=== PATIENT | female | born 1985 | race Caucasian/White ===

== ENCOUNTER 2022-03-28 15:51 | Emergency (ER) | payer SELFPAY ==
--- NOTE | 2022-03-28 16:24 | ED Abdominal Pain ---
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 PT WAS SENT [facility] BY [facility] WITH ABNORMAL EKG. Source of Information: Patient Exam Limitations: No Limitations History of Present Illness Date Seen by Provider: Mar 28, 2022 Time Seen by Provider: 16:09 Initial Comments This is a 36-year-old female who was referred to the emergency department per [facility] for concerns of abnormal EKG findings. States that she presented to [facility] today for concerns of right upper quadrant abdominal pain that radiates into her back. Symptoms been present for the past 2 days, always worse after meals. Her last meal was around noon and she had meatloaf, cheddar peppers, and a breakfast burrito. No fever, chills, cough, shortness of breath, chest pain, vomiting, diarrhea, constipation, dysuria. Allergies and Home Medications Allergies Coded Allergies: No Known Drug Allergies (Unverified , 03/28/22) Patient Home Medication List Home Medication List Reviewed: Yes Ciprofloxacin HCl (Ciprofloxacin HCl) 500 Mg Tablet, 500 MG PO BID Prescribed by: SHAI MOLINA on 03/28/221811 Hydrochlorothiazide (Hydrochlorothiazide) 25 Mg Tablet, 25 MG PO DAILY Prescribed by: SHAI MOLINA on 03/28/221821 Metronidazole (Metronidazole) 500 Mg Tablet, 500 MG PO TID Prescribed by: SHAI MOLINA on 03/28/221811 Ondansetron (Ondansetron Odt) 4 Mg Tab.rapdis, 4 MG PO Q6H PRN for NAUSEA/VOMITING Prescribed by: SHAI MOLINA on 03/28/221811 Pantoprazole Sodium (Pantoprazole Sodium) 40 Mg Tablet.dr, 40 MG PO DAILY Prescribed by: SHAI MOLINA on 03/28/221811 Review of Systems Review of Systems Constitutional: see HPI Past Akwjghl-Adpwlu-Gxjeac Hx Patient Social History Tobacco Use?: Yes Tobacco type used: Cigarettes Smoking Status: Current Everyday Smoker Use of E-Cig and/or Vaping dev: Yes Use of E-Cig and/or Vaping Ovidio: Current Someday User Substance use?: No Alcohol Use?: Yes Alcohol Frequency: Rarely Pt feels they are or have been: No Physical Exam Vital Signs Vital Signs - First Documented 03/28/22 16:05 Pulse 94 Resp 14 B/P (MAP) 184/132 (149) Pulse Ox 97 O2 Delivery Room Air Capillary Refill : Less Than 3 Seconds Height/Weight/BMI Height: '" Weight: lbs. oz. kg; BMI Method: General Appearance: WD/WN, no apparent distress HEENT: PERRL/EOMI, normal ENT inspection, pharynx normal Neck: full range of motion, normal inspection Respiratory: lungs clear, normal breath sounds, no respiratory distress, no accessory muscle use Cardiovascular: regular rate, rhythm, no murmur Gastrointestinal: normal bowel sounds, soft; No distended, No guarding, No rebound; tenderness (epigastric) Extremities: normal range of motion, normal inspection Back: normal inspection Neurologic/Psychiatric: no motor/sensory deficits, alert, normal mood/affect, oriented x 3 Skin: normal color, warm/dry Progress/Results/Core Measures Results/Orders Lab Results Laboratory Tests Test 03/28/22 16:24 Range/Units White Blood Count 11.8 H 4.3-11.0 10^3/uL Red Blood Count 4.75 3.80-5.11 10^6/uL Hemoglobin 14.1 11.5-16.0 g/dL Hematocrit 42 35-52 % Mean Corpuscular Volume 89 80-99 fL Mean Corpuscular Hemoglobin 30 25-34 pg Mean Corpuscular Hemoglobin Concent 33 32-36 g/dL Red Cell Distribution Width 12.3 10.0-14.5 % Platelet Count 346 130-400 10^3/uL Mean Platelet Volume 8.4 L 9.0-12.2 fL Immature Granulocyte % (Auto) 0 % Neutrophils (%) (Auto) 57 42-75 % Lymphocytes (%) (Auto) 28 12-44 % Monocytes (%) (Auto) 6 0-12 % Eosinophils (%) (Auto) 7 0-10 % Basophils (%) (Auto) 1 0-10 % Neutrophils # (Auto) 6.8 1.8-7.8 10^3/uL Lymphocytes # (Auto) 3.3 1.0-4.0 10^3/uL Monocytes # (Auto) 0.8 0.0-1.0 10^3/uL Eosinophils # (Auto) 0.8 H 0.0-0.3 10^3/uL Basophils # (Auto) 0.1 0.0-0.1 10^3/uL Immature Granulocyte # (Auto) 0.1 0.0-0.1 10^3/uL Sodium Level 138 135-145 MMOL/L Potassium Level 4.1 3.6-5.0 MMOL/L Chloride Level 106 98-107 MMOL/L Carbon Dioxide Level 24 21-32 MMOL/L Anion Gap 8 5-14 MMOL/L Blood Urea Nitrogen 13 7-18 MG/DL Creatinine 0.81 0.60-1.30 MG/DL Estimat Glomerular Filtration Rate 96 BUN/Creatinine Ratio 16 Glucose Level 96 70-105 MG/DL Calcium Level 9.1 8.5-10.1 MG/DL Corrected Calcium 9.0 8.5-10.1 MG/DL Total Bilirubin 0.3 0.1-1.0 MG/DL Aspartate Amino Transf (AST/SGOT) 27 5-34 U/L Alanine Aminotransferase (ALT/SGPT) 40 0-55 U/L Alkaline Phosphatase 68 40-136 U/L Troponin I < 0.028 <0.028 NG/ML Total Protein 7.1 6.4-8.2 GM/DL Albumin 4.1 3.2-4.5 GM/DL My Orders Orders - SHAI MOLINA APRN Ekg Tracing (03/28/22 16:11) Cbc With Automated Diff (03/28/22 16:33) Comprehensive Metabolic Panel (03/28/22 16:33) Urine Bedside (03/28/22 16:33) Fentanyl Inj (Sublimaze Injection) (03/28/22 16:45) Ondansetron Injection (Zofran Injectio (03/28/22 16:45) Troponin I Mau (03/28/22 16:33) Ct Abdomen/Pelvis W (03/28/22 16:33) Iohexol Injection (Omnipaque 350 Mg/Ml 1 (03/28/22 16:45) Received Contrast (Hold Metformin- Contr (03/28/22 16:45) Ns (Ivpb) (Sodium Chloride 0.9% Ivpb Bag (03/28/22 16:45) Hydrochlorothiazide Cap/Tablet (Hctz Cap (03/28/22 18:30) Medications Given in ED Current Medications Medications Dose Ordered Sig/Kirsten Route Start Time Stop Time Status Last Admin Dose Admin Hydrochlorothiazide 25 mg ONCE ONCE PO 03/28/22 18:30 03/28/22 18:31 DC 03/28/22 18:31 25 MG Iohexol 100 ml ONCE ONCE IV 03/28/22 16:45 03/28/22 16:46 DC 03/28/22 17:29 80 ML Ondansetron HCl 4 mg ONCE ONCE IVP 03/28/22 16:45 03/28/22 16:46 DC 03/28/22 17:17 4 MG Sodium Chloride 100 ml ONCE ONCE IV 03/28/22 16:45 03/28/22 16:46 DC 03/28/22 17:29 80 ML Vital Signs/I&O 03/28/22 03/28/22 16:05 18:33 Pulse 94 84 Resp 14 16 B/P (MAP) 184/132 (149) 184/131 Pulse Ox 97 98 O2 Delivery Room Air Blood Pressure Mean: 149 Initial ECG Impression Date: Mar 28, 2022 Initial ECG Impression Time: 16:17 Initial ECG Rate: 85 Initial ECG Rhythm: Normal Sinus Initial ECG Intervals: Normal Initial ECG Impression: Normal Initial ECG Comparisson: No Previous ECG Available Diagnostic Imaging Diagonstic Imaging: CT Plain Films/CT/US/NM/MRI: abdomen Comments [facility] [place] NAME: MCFADDENDOV R [facility] REC#: [id number] PT STATUS: DEP ER : 1985 PHYSICIAN: SHAI MOLINA APRN ADMIT DATE: 03/28/22/ER Signed Date of Exam:03/28/22 CT ABDOMEN/PELVIS W PROCEDURE: CT abdomen and pelvis with contrast. TECHNIQUE: Multiple contiguous axial images were obtained through the abdomen and pelvis after administration of intravenous contrast. Auto Exposure Controls were utilized during the CT exam to meet ALARA standards for radiation dose reduction. All CT scans use one or more of the following dose optimizing techniques: automated exposure control, MA and/or KvP adjustment based on patient size and exam type or iterative reconstruction. INDICATION: 36-year-old female, abdominal pain. Abnormal EKG. CORRELATION STUDY: None. FINDINGS: LOWER THORAX: Clear. Heart size is at least mildly enlarged. Probable small esophageal hernia. LIVER: Borderline enlarged, likely with hepatic steatosis. A few very small low-attenuating lesions are present, nonspecific, favor probable small cysts. GALLBLADDER: Mildly distended, otherwise unremarkable. No overt bile duct dilatation. SPLEEN: Unremarkable. PANCREAS: Unremarkable. ADRENAL GLANDS: Unremarkable. KIDNEYS: Normal configuration. No calcification or obstruction. ABDOMINAL AORTA: Unremarkable, nonaneurysmal. Incidental aortic left renal vein, normal variant. A few shotty aortocaval lymph nodes. GASTROINTESTINAL TRACT: Small amount of fluid and retained gastric contents in the stomach. Question some wall thickening about the duodenum. Additionally, there are areas of small bowel wall thickening; particularly in the lower abdomen. No transition or evidence for obstruction. Normal appendix is noted in the right lower quadrant. Colon is largely decompressed with only small amount of stool. No significant free air. Trace pelvic fluid, within physiologic range. URINARY BLADDER: Unremarkable. REPRODUCTIVE: Uterus and adnexa are unremarkable. OSSEOUS STRUCTURES: No acute abnormality. There is mild loss of height and compression deformity of the superior T12 endplate. OTHER: None. IMPRESSION: 1. Scattered areas of suggested wall thickening including the duodenum and small bowel, may reflect nonspecific duodenitis/enteritis. No gastrointestinal tract obstruction. 2. Borderline hepatomegaly with hepatic steatosis. 3. Heart size does appear to be at least mildly enlarged. Dictated by: Dictated on workstation # [id number] Dict: 03/28/221735 Trans: 03/28/221939 [id number] Interpreted by: URI MONGE DO Electronically signed by: URI MONGE DO 03/28/221939 Departure Communication (Admissions) Time/Spoke to Consulting Phy: 18:00 Dr. Perry, will place on antibiotics, PPI and have close follow up. Impression Primary Impression: Duodenitis Disposition: HOME, SELF-CARE Condition: Improved Departure-Patient Inst. Decision time for Depature: 18:09 Referrals: NO,LOCAL PHYSICIAN (PCP/Family) Primary Care Physician Patient Instructions: [id number] Add. Discharge Instructions: Plan: 1. Clear liquid diet for the next few days. You will need to take antibiotics as directed you are being prescribed ciprofloxacin and Flagyl. 2. Start Protonix you will take this daily. 3. You can use Zofran every 6 hours as needed for nausea. 4. Follow-up with Dr. Perry in his office on March,March 31 at 10:00 AM. 5. Return to the ER if you have any new, concerning, worsening symptoms. Fernando Perry, DO [email or web address] [address] [facility] [address], [place] [address] All discharge instructions reviewed with patient and/or family. Voiced understanding. Scripts Hydrochlorothiazide (Hydrochlorothiazide) 25 Mg Tablet 25 MG PO DAILY for 30 Days, #30 TAB 0 Refills Prov: SHAI MOLINA EMBEDDED SOFTWARE TEST ENGINEER 03/28/22 Pantoprazole Sodium (Pantoprazole Sodium) 40 Mg Tablet.dr 40 MG PO DAILY for 14 Days, #14 TAB 0 Refills Prov: SHAI MOLINA EMBEDDED SOFTWARE TEST ENGINEER 03/28/22 Ondansetron (Ondansetron Odt) 4 Mg Tab.rapdis 4 MG PO Q6H PRN for NAUSEA/VOMITING, #10 TAB 0 Refills Prov: SHAI MOLINA EMBEDDED SOFTWARE TEST ENGINEER 03/28/22 Metronidazole (Metronidazole) 500 Mg Tablet 500 MG PO TID for 7 Days, #21 TAB 0 Refills Prov: SHAI MOLINA EMBEDDED SOFTWARE TEST ENGINEER 03/28/22 Ciprofloxacin HCl (Ciprofloxacin HCl) 500 Mg Tablet 500 MG PO BID for 7 Days, #14 TAB Prov: SHAI MOLINA EMBEDDED SOFTWARE TEST ENGINEER 03/28/22 SHAI MOLINA APRN Mar 28, 2022 16:24
[2022-03-28 16:39] LABS: BASOPHILS # (AUTO) 0.1 10^3/uL (0.0-0.1); BASOPHILS % (AUTO) 1 % (0-10); EOSINOPHILS # (AUTO) 0.8 10^3/uL (0.0-0.3); EOSINOPHILS % (AUTO) 7 % (0-10); HEMATOCRIT 42 % (35-52); HEMOGLOBIN 14.1 g/dL (11.5-16.0); LYMPHOCYTES # (AUTO) 3.3 10^3/uL (1.0-4.0); LYMPHOCYTES % (AUTO) 28 % (12-44); MEAN CORPUSCULAR HEMOGLOBIN 30 pg (25-34); MEAN CORPUSCULAR HGB CONC 33 g/dL (32-36); MEAN CORPUSCULAR VOLUME 89 fL (80-99); MEAN PLATELET VOLUME 8.4 fL (9.0-12.2); MONOCYTES # (AUTO) 0.8 10^3/uL (0.0-1.0); MONOCYTES % (AUTO) 6 % (0-12); NEUTROPHILS # (AUTO) 6.8 10^3/uL (1.8-7.8); NEUTROPHILS % (AUTO) 57 % (42-75); PLATELET COUNT 346 10^3/uL (130-400); WHITE BLOOD COUNT 11.8 10^3/uL (4.3-11.0)
[2022-03-28] MEDS ORDERED: HOLD METFORMIN - RECEIVED CONTRAST 20 ML VIAL IV SCH (16:45)
[2022-03-28] MEDS ORDERED: ONDANSETRON 4 MG/2 ML (SDV) Z0FRAN IVP ONE (16:45)
[2022-03-28] MEDS ORDERED: IOHEXOL 350 MG/ML 100 ML (OMNIPAQUE 350) VIAL IV ONE (16:45)
[2022-03-28] MEDS ORDERED: NS 100 ML (IVPB) BAG IV ONE (16:45)
[2022-03-28] MEDS ORDERED: fentaNYL INJ 100 MCG/2 ML AMP IVP ONE (16:45)
[2022-03-28 16:47] LABS: ALBUMIN 4.1 GM/DL (3.2-4.5); CHLORIDE 106 MMOL/L (98-107); POTASSIUM 4.1 MMOL/L (3.6-5.0); SODIUM 138 MMOL/L (135-145)
[2022-03-28 16:48] LABS: CALCIUM 9.1 MG/DL (8.5-10.1)
[2022-03-28 16:49] LABS: GLUCOSE 96 MG/DL (70-105); TOTAL PROTEIN 7.1 GM/DL (6.4-8.2)
[2022-03-28 16:50] LABS: CARBON DIOXIDE 24 MMOL/L (21-32)
[2022-03-28 16:51] LABS: BILIRUBIN,TOTAL 0.3 MG/DL (0.1-1.0)
[2022-03-28 16:53] LABS: ALKALINE PHOSPHATASE 68 U/L (40-136); CREATININE SERUM 0.81 MG/DL (0.60-1.30); GFR ESTIMATED 96
[2022-03-28 16:54] LABS: BUN/CREATININE RATIO 16
[2022-03-28 16:56] LABS: ALANINE AMINOTRANSFERASE 40 U/L (0-55)
--- NOTE | 2022-03-28 17:50 | Diagnostic Imaging Report ---
PROCEDURE: CT abdomen and pelvis with contrast. TECHNIQUE: Multiple contiguous axial images were obtained through the abdomen and pelvis after administration of intravenous contrast. Auto Exposure Controls were utilized during the CT exam to meet ALARA standards for radiation dose reduction. All CT scans use one or more of the following dose optimizing techniques: automated exposure control, MA and/or KvP adjustment based on patient size and exam type or iterative reconstruction. INDICATION: 36-year-old female, abdominal pain. Abnormal EKG. CORRELATION STUDY: None. FINDINGS: LOWER THORAX: Clear. Heart size is at least mildly enlarged. Probable small esophageal hernia. LIVER: Borderline enlarged, likely with hepatic steatosis. A few very small low-attenuating lesions are present, nonspecific, favor probable small cysts. GALLBLADDER: Mildly distended, otherwise unremarkable. No overt bile duct dilatation. SPLEEN: Unremarkable. PANCREAS: Unremarkable. ADRENAL GLANDS: Unremarkable. KIDNEYS: Normal configuration. No calcification or obstruction. ABDOMINAL AORTA: Unremarkable, nonaneurysmal. Incidental aortic left renal vein, normal variant. A few shotty aortocaval lymph nodes. GASTROINTESTINAL TRACT: Small amount of fluid and retained gastric contents in the stomach. Question some wall thickening about the duodenum. Additionally, there are areas of small bowel wall thickening; particularly in the lower abdomen. No transition or evidence for obstruction. Normal appendix is noted in the right lower quadrant. Colon is largely decompressed with only small amount of stool. No significant free air. Trace pelvic fluid, within physiologic range. URINARY BLADDER: Unremarkable. REPRODUCTIVE: Uterus and adnexa are unremarkable. OSSEOUS STRUCTURES: No acute abnormality. There is mild loss of height and compression deformity of the superior T12 endplate. OTHER: None. IMPRESSION: 1. Scattered areas of suggested wall thickening including the duodenum and small bowel, may reflect nonspecific duodenitis/enteritis. No gastrointestinal tract obstruction. 2. Borderline hepatomegaly with hepatic steatosis. 3. Heart size does appear to be at least mildly enlarged. Dictated by: Dictated on workstation # [id number]
[2022-03-28] MEDS ORDERED: METR-145 PO (18:12)
[2022-03-28] MEDS ORDERED: PANT40TA52 PO (18:12)
[2022-03-28] MEDS ORDERED: ONDA4TAB11 PO (18:12)
[2022-03-28] MEDS ORDERED: CIPR500T5 PO (18:12)
[2022-03-28] MEDS ORDERED: HYDR25TA4 PO (18:22)
[2022-03-28 18:33] VITALS: BP 184/131
== END 2022-03-28 18:18 | disposition home or self-care (01) ==
LOC: ER 15:55
DX: K29.80 Duodenitis without bleeding (principal); F17.210 Nicotine dependence, cigarettes, uncomplicated
CPT/HCPCS: 36415; 74177; 80053; 84484; 85025; 93005

== ENCOUNTER 2022-04-09 12:34 | Emergency (ER) | payer OTHER ==
[~2022-04-09] VITALS: Ht 162 cm; Wt 99.7 kg
[~2022-04-09 12:34] MED LIST: CIPR500T5 PO; HYDR25TA4 PO; METR-145 PO; ONDA4TAB11 PO; PANT40TA52 PO
[2022-04-09 13:25] VITALS: BP 160/122
[2022-04-09] MEDS ORDERED: morphine INJ 10 MG/ML 1ML (SYR OR VIAL) IVP STA (13:36)
--- NOTE | 2022-04-09 13:40 | ED GI ---
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 PT REPORTS PAIN RADIATES TO HER BACK. PT DENIES ANY RECENT FEVER. PT STATES SHE WAS SEEN LAST WEEK FOR SIMILAR S/S AND HAS APT WITH TERRI TOMORROW. History of Present Illness Date Seen by Provider: Apr 09, 2022 Time Seen by Provider: 13:30 Initial Comments Patient is a 36 yo F who presents to the ED with RUQ abdominal pain that began earlier today after she ate lunch. She was seen in this ED recently for similar symptoms. She is scheduled to see Dr. Perry tomorrow for further evaluation of the symptoms. She has not had a fever. She endorses nausea but has not thrown up. She states the pain is somewhat improved from prior but it has not resolved. Patient had a CT performed at her prior ED visit here earlier this month. There was some mild thickening noted of the duodenum. Patient was placed on ciprofloxacin and flagyl at that time. Location: RUQ, Epigastric Radiation: No Radiation Modifying Factors: Improves With Eating Allergies and Home Medications Allergies Coded Allergies: No Known Drug Allergies (Unverified , 03/28/22) Patient Home Medication List Home Medication List Reviewed: Yes Ciprofloxacin HCl (Ciprofloxacin HCl) 500 Mg Tablet, 500 MG PO BID Prescribed by: SHAI MOLINA on 03/28/221811 Hydrochlorothiazide (Hydrochlorothiazide) 25 Mg Tablet, 25 MG PO DAILY Prescribed by: SHAI MOLINA on 03/28/22 182 Metronidazole (Metronidazole) 500 Mg Tablet, 500 MG PO TID Prescribed by: SHAI MOLINA on 03/28/221811 Ondansetron (Ondansetron Odt) 4 Mg Tab.rapdis, 4 MG SL Q4H PRN for NAUSEA/ VOMITING Prescribed by: Bronson Mendes on 04/09/22 1438 Ondansetron (Ondansetron Odt) 4 Mg Tab.rapdis, 4 MG PO Q6H PRN for NAUSEA/VOMITING Prescribed by: Bronson Mendes on 04/09/22 1456 Pantoprazole Sodium (Pantoprazole Sodium) 40 Mg Tablet.dr, 40 MG PO DAILY Prescribed by: SHAI MOLINA on 03/28/221811 Review of Systems Review of Systems Constitutional: no symptoms reported Respiratory: No Symptoms Reported Cardiovascular: No Symptoms Reported Gastrointestinal: See HPI Genitourinary: No Symptoms Reported Musculoskeletal: no symptoms reported Skin: no symptoms reported Psychiatric/Neurological: No Symptoms Reported Past Oqhduxa-Zvnoiz-Btsamz Hx Patient Social History Tobacco Use?: Yes Tobacco type used: Cigarettes Smoking Status: Current Everyday Smoker Substance use?: No Alcohol Use?: No Pt feels they are or have been: No Physical Exam Vital Signs Vital Signs - First Documented 04/09/22 13:25 Temp 36.2 Pulse 102 Resp 20 B/P (MAP) 160/122 (135) Pulse Ox 98 Capillary Refill : Less Than 3 Seconds Height/Weight/BMI Height: '" Weight: lbs. oz. kg; 37.00 BMI Method: General Appearance: WD/WN, no apparent distress HEENT: PERRL/EOMI Neck: non-tender, full range of motion Respiratory: chest non-tender, lungs clear Cardiovascular: regular rate, rhythm Gastrointestinal: normal bowel sounds, soft, no organomegaly, no pulsatile mass, tenderness (RUQ) Extremities: normal range of motion, non-tender Back: normal inspection Neurologic/Psychiatric: graphic design intern II-XII nml as tested, no motor/sensory deficits, alert, normal mood/affect, oriented x 3 Skin: normal color, warm/dry Lymphatic: no adenopathy Progress/Results/Core Measures Results/Orders Lab Results Laboratory Tests Test 04/09/22 13:30 Range/Units White Blood Count 11.1 H 4.3-11.0 10^3/uL Red Blood Count 4.82 3.80-5.11 10^6/uL Hemoglobin 14.5 11.5-16.0 g/dL Hematocrit 43 35-52 % Mean Corpuscular Volume 88 80-99 fL Mean Corpuscular Hemoglobin 30 25-34 pg Mean Corpuscular Hemoglobin Concent 34 32-36 g/dL Red Cell Distribution Width 12.6 10.0-14.5 % Platelet Count 377 130-400 10^3/uL Mean Platelet Volume 8.6 L 9.0-12.2 fL Immature Granulocyte % (Auto) 1 % Neutrophils (%) (Auto) 57 42-75 % Lymphocytes (%) (Auto) 28 12-44 % Monocytes (%) (Auto) 6 0-12 % Eosinophils (%) (Auto) 7 0-10 % Basophils (%) (Auto) 1 0-10 % Neutrophils # (Auto) 6.3 1.8-7.8 10^3/uL Lymphocytes # (Auto) 3.1 1.0-4.0 10^3/uL Monocytes # (Auto) 0.7 0.0-1.0 10^3/uL Eosinophils # (Auto) 0.8 H 0.0-0.3 10^3/uL Basophils # (Auto) 0.1 0.0-0.1 10^3/uL Immature Granulocyte # (Auto) 0.1 0.0-0.1 10^3/uL Sodium Level 140 135-145 MMOL/L Potassium Level 4.1 3.6-5.0 MMOL/L Chloride Level 106 98-107 MMOL/L Carbon Dioxide Level 20 L 21-32 MMOL/L Anion Gap 14 5-14 MMOL/L Blood Urea Nitrogen 18 7-18 MG/DL Creatinine 0.84 0.60-1.30 MG/DL Estimat Glomerular Filtration Rate 92 BUN/Creatinine Ratio 21 Glucose Level 98 70-105 MG/DL Calcium Level 9.2 8.5-10.1 MG/DL Corrected Calcium 9.1 8.5-10.1 MG/DL Total Bilirubin 0.4 0.1-1.0 MG/DL Aspartate Amino Transf (AST/SGOT) 35 H 5-34 U/L Alanine Aminotransferase (ALT/SGPT) 40 0-55 U/L Alkaline Phosphatase 58 40-136 U/L Total Protein 7.4 6.4-8.2 GM/DL Albumin 4.1 3.2-4.5 GM/DL Lipase 33 8-78 U/L My Orders Orders - BRONSON MENDES CHARCOAL BURNER BEEHIVE KILN Cbc With Automated Diff (04/09/22 13:36) Comprehensive Metabolic Panel (04/09/22 13:36) Lipase (04/09/22 13:36) Iv/Invasive Line Insertion .IV INSERT (04/09/22 13:36) Ketorolac Injection (Toradol Injection) (04/09/22 13:45) Morphine Injection (Morphine Injection (04/09/22 13:36) Hydrocodone/Apap 5/325 Tablet (Lortab 5 (04/09/22 14:45) Medications Given in ED Current Medications Medications Dose Ordered Sig/Kirsten Route Start Time Stop Time Status Last Admin Dose Admin Acetaminophen/ Hydrocodone Bitart 1 ea ONCE ONCE PO 04/09/22 14:45 04/09/22 14:46 DC 04/09/22 14:51 1 EA Ketorolac Tromethamine 15 mg ONCE ONCE IVP 04/09/22 13:45 04/09/22 13:46 DC 04/09/22 14:07 15 MG Vital Signs/I&O 04/09/22 04/09/22 13:25 14:51 Temp 36.2 36.2 Pulse 102 Resp 20 B/P (MAP) 160/122 (135) Pulse Ox 98 Blood Pressure Mean: 135 Progress Progress Note : Progress Note Patient is nontoxic and well hydrated on exam. Abdominal exam is notable for RUQ and epigastric TTP without guarding. No abd rigidity or distention appreciated. Vital signs are reassuring. Laboratory evaluation largely unremarkable. Specifically there is no hyperbilirubinemia or transaminitis that would be expected in CBD obstruction. Cholangitis unlikely given normal WBC and lack of fever. No indication for cross sectional imaging at this time as patient recently had imaging done that was acutely negative. Will d/c home with recs for supportive care and follow-up with PCP for persistent symptoms. Follow-up with Dr. Perry tomorrow as scheduled for further evaluation. Return precautions for urgent symptomology discussed. Patient verbalized understanding. Departure Impression Primary Impression: RUQ abdominal pain Disposition: HOME, SELF-CARE Condition: Improved Departure-Patient Inst. Decision time for Depature: 14:30 Referrals: NO,LOCAL PHYSICIAN (PCP/Family) Primary Care Physician Patient Instructions: Abdominal Pain, Adult ED Add. Discharge Instructions: Follow-up with Dr. Perry tomorrow as scheduled. All discharge instructions reviewed with patient and/or family. Voiced understanding. Scripts Ondansetron (Ondansetron Odt) 4 Mg Tab.rapdis 4 MG PO Q6H PRN for NAUSEA/VOMITING, #10 TAB 0 Refills Prov: MENDESBRONSON HIDALGO APRN 04/09/22 Ondansetron (Ondansetron Odt) 4 Mg Tab.rapdis 4 MG SL Q4H PRN for NAUSEA/VOMITING for 7 Days, #20 TAB Prov: BRONSON MENEDS APRN 04/09/22 BRONSON MENDES APRN Apr 09, 2022 13:40
[2022-04-09 13:43] LABS: BASOPHILS # (AUTO) 0.1 10^3/uL (0.0-0.1); BASOPHILS % (AUTO) 1 % (0-10); EOSINOPHILS # (AUTO) 0.8 10^3/uL (0.0-0.3); EOSINOPHILS % (AUTO) 7 % (0-10); HEMATOCRIT 43 % (35-52); HEMOGLOBIN 14.5 g/dL (11.5-16.0); LYMPHOCYTES # (AUTO) 3.1 10^3/uL (1.0-4.0); LYMPHOCYTES % (AUTO) 28 % (12-44); MEAN CORPUSCULAR HEMOGLOBIN 30 pg (25-34); MEAN CORPUSCULAR HGB CONC 34 g/dL (32-36); MEAN CORPUSCULAR VOLUME 88 fL (80-99); MEAN PLATELET VOLUME 8.6 fL (9.0-12.2); MONOCYTES # (AUTO) 0.7 10^3/uL (0.0-1.0); MONOCYTES % (AUTO) 6 % (0-12); NEUTROPHILS # (AUTO) 6.3 10^3/uL (1.8-7.8); NEUTROPHILS % (AUTO) 57 % (42-75); PLATELET COUNT 377 10^3/uL (130-400); WHITE BLOOD COUNT 11.1 10^3/uL (4.3-11.0)
[2022-04-09] MEDS ORDERED: KETOROLAC 30 MG/ML VIAL IVP ONE (13:45)
[2022-04-09 13:49] LABS: ALBUMIN 4.1 GM/DL (3.2-4.5)
[2022-04-09 13:50] LABS: POTASSIUM 4.1 MMOL/L (3.6-5.0)
[2022-04-09 13:51] LABS: CALCIUM 9.2 MG/DL (8.5-10.1)
[2022-04-09 13:52] LABS: TOTAL PROTEIN 7.4 GM/DL (6.4-8.2)
[2022-04-09 13:54] LABS: BILIRUBIN,TOTAL 0.4 MG/DL (0.1-1.0)
[2022-04-09 13:56] LABS: CREATININE SERUM 0.84 MG/DL (0.60-1.30)
[2022-04-09] MEDS ORDERED: ONDA4TAB11 SL (14:38)
[2022-04-09] MEDS ORDERED: HYDROcodone/APAP 5 MG/325 MG (LORTAB) TAB PO ONE (14:45)
[2022-04-09] MEDS ORDERED: ONDA4TAB11 PO (14:56)
[2022-04-13] MEDS ORDERED: PANT40TA2 PO (14:22)
== END 2022-04-09 14:59 | disposition home or self-care (01) ==
LOC: EDUNIT# 12:34 → ER 12:35
DX: R10.11 Right upper quadrant pain (principal); R11.0 Nausea; F17.210 Nicotine dependence, cigarettes, uncomplicated
CPT/HCPCS: 36415; 80053; 83690; 85025; 99283

== ENCOUNTER 2022-04-10 12:39 | Outpatient (CLI) | payer SELFPAY ==
[~2022-04-10] VITALS: Ht 162.6 cm; Wt 99.8 kg
[~2022-04-10 12:39] MED LIST changes: +ONDA4TAB11 SL
== END 2022-04-11 10:23 | disposition home or self-care (01) ==
LOC: PREOP 12:39
PROVIDERS: ATTEND Surgery
DX: Z01.818 Encounter for other preprocedural examination (principal)

== ENCOUNTER 2022-04-13 11:23 | Day surgery (SDC) | payer OTHER ==
[~2022-04-13] VITALS: Ht 162.6 cm; Wt 99.8 kg
[2022-04-13] MEDS ORDERED: LACTATED RINGERS 1,000 ML IV ONE (11:34)
[2022-04-13] MEDS ORDERED: LACTATED RINGERS 1,000 ML IV STA (11:39)
[2022-04-13] MEDS ORDERED: HURRICAINE EXT TUBE (BENZOCAINE) XX PRN (11:45)
[2022-04-13 11:50] VITALS: BP 173/111
--- NOTE | 2022-04-13 13:41 | Progress Note-Pre Operative ---
Pre-Operative Progress Note Date of Available H&P: Mar 31, 2022 Date H&P Reviewed: Apr 13, 2022 Time H&P Reviewed: 13:41 History & Physical: H&P Reviewed, Patient Examed, No changes noted Pre-Operative Diagnosis: dysphagia, gerd HINA MURRAY DO Apr 13, 2022 13:41
[2022-04-13] MEDS ORDERED: proPOfol 200 MG/20 ML (DIPRIVAN) VIAL IV ONE (14:01)
[2022-04-13] MEDS ORDERED: MIDAZOLAM 2 MG/2 ML (VERSED) VIAL ONE (14:01)
[2022-04-13 14:20] VITALS: BP 171/98
--- NOTE | 2022-04-13 14:20 | Progress Note-Post Operative ---
Post-Operative Progess Note Surgeon (s)/Directory Clerk (s) Surgeon HINA MURRAY DO Directory Clerk: NA Pre-Operative Diagnosis dysphagia, gerd Post-Operative Diagnosis Slight reflux esophagitis Procedure & Operative Findings Date of Procedure 04/13/22 Procedure Performed/Findings EGD with biopsies Anesthesia Type per discharge door operator Estimated Blood Loss Estimated blood loss (mL): None Specimens/Packing Specimens Removed Antrum bx x 1 GE junction bx x1 HINA MURRAY DO Apr 13, 2022 14:20
--- NOTE | 2022-04-13 14:21 | Discharge Inst-Simple/Standard ---
Discharge Inst-Standard Patient Instructions/Follow Up Plan of Care/Instructions/FU: F/U with Dr. Perry Activity as Tolerated: Yes Discharge Diet: Regular Diet HINA PERRY DO Apr 13, 2022 14:21
[2022-04-13] MEDS ORDERED: PANT40TA2 PO (14:22)
[2022-04-13 14:25] VITALS: BP 176/113
--- NOTE | 2022-04-13 14:28 | Anesthesia-General Post-Op ---
MAC Patient Condition Mental Status/LOC: Same as Preop Cardiovascular: Satisfactory Nausea/Vomiting: Absent Respiratory: Satisfactory Pain: Controlled Complications: Absent Post Op Complications Complications None Follow Up Care/Instructions Patient Instructions None needed. Anesthesiology Discharge Order Discharge Order Patient is doing well, no complaints, stable vital signs, no apparent adverse anesthesia problems. No complications reported per nursing. MARY GARCIA CRNA Apr 13, 2022 14:28
[2022-04-13 14:50] VITALS: BP 154/102
[2022-04-13 14:53] VITALS: BP 154/102
--- NOTE | 2022-04-13 20:42 | OPERATIVE REPORT ---
DATE OF SERVICE: 04/13/2022 PREOPERATIVE DIAGNOSES: Epigastric abdominal pain and gastroesophageal reflux disease. POSTOPERATIVE DIAGNOSIS: Reflux esophagitis, slight. PROCEDURE: EGD with biopsy. SURGEON: Hina Perry DO ANESTHESIA: Per TOOL LIAISON. ESTIMATED BLOOD LOSS: None. COMPLICATIONS: None. INDICATIONS: The patient is a 36-year-old female with epigastric abdominal pain and GERD symptoms. She understands risks and benefits of procedure and wishes to proceed. Consent was signed in the chart. DESCRIPTION OF PROCEDURE: The patient was taken to the endoscopy suite, placed in left lateral recumbent position. Timeout was performed. Scope was inserted in mouth, down the esophagus, stomach and into the duodenum without difficulty. There were no polyps, masses or ulcerations within the duodenum. Scope was slowly retracted back into stomach, was further insufflated. No polyps, masses or ulcerations. Biopsy of the antrum was obtained. Scope was retroflexed noting no other pathology. Scope was returned to its normal position, slowly withdrawn to distal esophagus. Slight erythematous changes. Biopsy of the GE junction was obtained. Changes consistent with some slight reflux esophagitis. Scope was slowly retracted back to completely remove, noting no other pathology. The patient tolerated the procedure well without any complications. She was taken to recovery room in stable condition. RECOMMENDATIONS: The patient will be on Protonix 40 mg daily to see how her symptoms do. She will follow up in our office. We would also work up for gallbladder since visualization of her symptoms, I do not think is causing all her symptoms. So, we will continue with workup of gallbladder. Job ID: [id number] DocumentID: [id number] Dictated Date: 04/13/2022 14:22:59 Solar Installer Technician Date: 04/13/2022 20:41:50 Dictated By: HINA PERRY DO
== END 2022-04-13 14:53 | disposition home or self-care (01) ==
LOC: ENDO 11:23
PROVIDERS: ATTEND Surgery
DX: K21.00 Gastro-esophageal reflux disease with esophagitis, without bleeding (principal); E66.9 Obesity, unspecified; Z68.37 Body mass index [BMI] 37.0-37.9, adult; K29.80 Duodenitis without bleeding; K82.9 Disease of gallbladder, unspecified; F17.200 Nicotine dependence, unspecified, uncomplicated; Z79.899 Other long term (current) drug therapy; Z28.310 Unvaccinated for COVID-19
CPT/HCPCS: 84703

== ENCOUNTER → 2022-04-21 | Outpatient (CLI) | payer OTHER ==
[~2022-04-21] MED LIST changes: +PANT40TA2 PO
--- NOTE | 2022-04-21 11:24 | Diagnostic Imaging Report ---
PROCEDURE: US Gallbladder. TECHNIQUE: Multiple real-time grayscale images were obtained over the right upper quadrant in various projections. INDICATION: Epigastric pain. COMPARISON: Exam is correlated with abdominopelvic CT 03/28/2022. FINDINGS: Liver appeared nonfocal. There is no intra- or extra-hepatic bile duct dilatation, and patent hepatopetal/normal directional portal venous flow is confirmed. The gallbladder was normal. There is no stone or sludge. The Gavin's sign is negative. The aorta is nonaneurysmal. The visualized portions of the pancreas are unremarkable. There is no ascites. No acute fluid collection. The unobstructed right kidney is normal in size, cortical thickness, and echotexture measuring 11.9 cm. While homogeneous, the hepatic echotexture pattern relative to the right renal parenchyma is mildly elevated diffusely suggestive of mild steatosis. IMPRESSION: 1. Normal gallbladder. No biliary dilatation or ascites. 2. Probable mild diffuse hepatic steatosis. Dictated by: Dictated on workstation # [id number]
== END ==
LOC: RAD 07:40
PROVIDERS: ATTEND Surgery
DX: R10.13 Epigastric pain (principal)
CPT/HCPCS: 76705

== ENCOUNTER → 2022-04-27 | Outpatient (CLI) | payer OTHER ==
[~2022-04-27] MED LIST changes: +CATHETER FLUSH 10 ML SYR IVP PRN
--- NOTE | 2022-04-27 18:52 | Diagnostic Imaging Report ---
INDICATION: Epigastric pain. TECHNIQUE: Patient was administered 5.2 mCi technetium 99m Choletec intravenously and imaging over the abdomen was performed. After 6 minutes, patient ingested 8 ounces of Ensure and gallbladder ejection fraction was calculated. There is homogeneous uptake of activity by the liver with prompt excretion of activity into the common duct and gallbladder. There is normal passage of activity into the small bowel. There is a small amount of activity in the stomach consistent with bile reflux. Gallbladder ejection fraction is normal at 87%. IMPRESSION: 1. Patent cystic duct and common bile duct. 2. Normal gallbladder ejection fraction of 87%. 3. Mild gastric bile reflux. Dictated by: Dictated on workstation # [id number]
== END ==
LOC: CARD 10:14
PROVIDERS: ATTEND Surgery
DX: K21.9 Gastro-esophageal reflux disease without esophagitis (principal)
CPT/HCPCS: 78227; A9537